=== PATIENT | male | born 1980 ===

== ENCOUNTER 2022-10-05 15:04 | Emergency (ER) | payer MEDICAID, MEDICARE ==
[2022-10-05] MEDS ORDERED: Sodium Chloride 0.9% 10 ML Syringe FLUSH PRN (15:08)
[2022-10-05] MEDS: Sodium Chloride 0.9% 1,000 ML IV ONE (15:28)
[2022-10-05] MEDS: Thiamine 500 MG in Sodium Chloride 0.9% 100 ML IV ONE (15:29)
[2022-10-05] MEDS: Folic Acid 1 MG Tab PO ONE (15:30)
[2022-10-05] MEDS: Divalproex Sodium Delayed-Release 250 MG Tab.CR PO ONE (15:30)
[2022-10-05] MEDS: chlordiazePOXIDE 25 MG Cap PO ONE (15:31)
[2022-10-05 15:47] LABS: CHLORIDE,CL 99 mmol/L (98-107); SODIUM,NA 136 mmol/L (136-145)
[2022-10-05 15:55] LABS: ANION GAP 27.1 mmol/L (5-15); ESTIMATED GFR 71 mL/min (>=60)
== END 2022-10-05 17:15 | disposition home or self-care (01) ==
LOC: VM.ED 15:04
DX: G40.909 Epilepsy, unspecified, not intractable, without status epilepticus (principal)
CPT/HCPCS: 80053; 82150; 83690; 85025; 96365; 99284; A9270; J3411; J3490; J7030